=== PATIENT | female | born 1990 | race Hispanic/Latino ===

== ENCOUNTER 2020-12-26 12:26 | Emergency (ER) | payer MEDICAID ==
[~2020-12-26] VITALS: Ht 146.1 cm; Wt 100.0 kg
[2020-12-26 13:13] LABS: HEMATOCRIT 39.7 % (37.0-47.0); IMMATURE GRANULOCYTES 0.2 % (0.0-5.0); MEAN CELL VOLUME 86.5 fL CALC (80.0-100.0); MEAN CORPUSCULAR HGB 28.3 pG CALC (26.0-32.0); MEAN CORPUSCULAR HGB CONC 32.7 g/dL CAL (32.0-36.0); NEUT# 4.47 thou/uL (2.00-7.15); RED BLOOD COUNT 4.59 mill/uL (4.20-5.60); RED CELL DISTRI WIDTH 13.5 % (11.5-15.5)
[2020-12-26 13:26] LABS: ALKALINE PHOSPHATASE 104 u/l (38-126); ANION GAP 8 (6-22 (CALC)); BUN 7 mg/dL (7-17); BUN/CREATININE RATIO 17 (12-20 (CALC)); CARBON DIOXIDE 27 mmol/l (22-30); CHLORIDE 103 mmol/l (95-108); CREATININE 0.4 mg/dL (0.5-1.0); GFR > 60 ML/MIN (>=60 (CALC)); GFR FOR AFR.AMER. > 60 ML/MIN (>=60 (CALC)); POTASSIUM 3.7 mmol/l (3.5-5.1); SGOT/AST 23 u/l (14-36); SODIUM 135 mmol/l (137-146); TOTAL PROTEIN 7.5 g/dL (6.3-8.2)
[2020-12-26 13:27] LABS: BILIRUBIN, TOTAL 0.6 mg/dL (0.0-1.4)
[2020-12-26 13:54] VITALS: BP 100/57
[2020-12-27] MEDS ORDERED: MECLIZINE25 MG PO (15:03)
== END 2020-12-26 13:56 | disposition home or self-care (01) ==
LOC: ED 12:26
PROVIDERS: Family Medicine
DX: H81.10 Benign paroxysmal vertigo, unspecified ear (principal)

== ENCOUNTER 2023-09-29 16:06 | Emergency (ER) | payer SELFPAY ==
[~2023-09-29] VITALS: Ht 146.1 cm; Wt 99.7 kg
[~2023-09-29 16:06] MED LIST: MECLIZINE25 MG PO
[2023-09-29 16:21] VITALS: BP 138/75
[2023-09-29 16:30] VITALS: BP 121/81
[2023-09-29 16:45] VITALS: BP 108/68
[2023-09-29 17:00] VITALS: BP 115/82
[2023-09-29 17:15] VITALS: BP 119/80
[2023-09-29] MEDS ORDERED: AMOXICILLIN & POT CLAVULANATE 875 MG/TAB PO ONE (17:20)
[2023-09-29] MEDS ORDERED: AMOX/K CLAV875 M1 PO (17:23)
[2023-09-29 17:30] VITALS: BP 125/84
== END 2023-09-29 17:42 | disposition home or self-care (01) | DRG 153 ==
LOC: ED 16:06
DX: H66.91 Otitis media, unspecified, right ear (principal); Z20.822 Contact with and (suspected) exposure to COVID-19